=== PATIENT | male | born 1940 | race Caucasian/White ===

== ENCOUNTER 2024-01-29 21:59 | Observation (INO) | payer MEDICARE, OTHER ==
[2024-01-29 23:53] LABS: INR-International Normal Ratio 1.1; PTT 27.7 sec (22.0-33.0); Prothrombin Time 11.9 sec (9.5-12.1)
[2024-01-30 00:03] LABS: #Basophils 0.12 10x3/uL (0.0-0.2); #Eosinphils 0.37 10x3/uL (0.0-0.5); #Monocytes 1.27 10x3/uL (0.0-1.1); #Neutrophils 13.57 10x3/uL (1.5-8.4); %Basophils 0.7 % (0.0-2.0); %Eosinophils 2.1 % (0.0-6.0); %Lymphocytes 13.6 % (18.0-47.0); %Monocytes 7.1 % (0.0-10.0); %Neutrophils 75.4 % (40.0-75.0); Hematocrit 33.1 % (38.8-50.0); Hemoglobin 10.9 g/dL (13.5-17.5); Mean Corpuscular HGB CONC 32.9 g/dL (32.0-36.0); Mean Corpuscular Hemoglobin 23.2 pg (27.0-33.0); Mean Corpuscular Volume 70.4 fL (81.2-95.1); Mean Platelet Volume 11.4 fL (7.4-10.4); Platelet Count 307 10x3/uL (150-450); RBC Distribution Width 15.3 % (11.5-14.5)
[2024-01-30 00:03] LABS: ALT (SGPT) 10 U/L (8-55); AST (SGOT) 23 U/L (5-34); Albumin 3.1 g/dL (3.4-4.8); Alkaline Phosphatase 155 U/L (40-110); Anion Gap 14 mmol/L (10-20); BUN (Urea Nitrogen) 16 mg/dL (8.4-25.7); Bilirubin, Total 0.7 mg/dL (0.2-1.2); Calc. Creatinine Clearance 0 mL/min (70-130); Calcium 8.6 mg/dL (7.8-10.44); Carbon Dioxide 20 mmol/L (23-31); Chloride 104 mmol/L (98-107); Estimated GFR 58; Globulin 3.7 g/dL (2.4-3.5); Glucose 103 mg/dL (83-110); Potassium 3.3 mmol/L (3.5-5.1); Protein, Total 6.8 g/dL (5.8-8.1); Sodium 135 mmol/L (136-145)
[2024-01-30 00:15] LABS: Burr Cells SLIGHT = 2-5 cells (100X) (0-1/hpf); Elliptocytes SLIGHT = 2-5 cells (100X) (0-1/hpf); Microcytosis SLIGHT = 6-15 cells (100X) (0-5/hpf); Schistocytes SLIGHT = 2-5 cells (100X) (0-1/hpf)
[2024-01-30 00:16] LABS: Platelet Adequacy Comment Appears Adequate
[2024-01-30 01:03] LABS: Bilirubin Neg (Negative); Blood, Urine Negative (Negative); Glucose, Urine (Dipstick) Normal (Negative); Ketone, Urine Negative (Negative); Leukocyte Negative (Negative); Nitrite Negative (Negative); Protein, Urine (Dipstick) 100 mg/dl (Neg-Trace); Urobilinogen Normal mg/dL (Less than 2)
[2024-01-30] MEDS ORDERED: cefTRIAXone (ROCEPHIN) 1 GM VIAL ONE (01:05)
[2024-01-30 01:17] LABS: Clarity Clear (Clear)
[2024-01-30 01:20] LABS: Bacteria/HPF Rare-Few HPF (None Seen); CAUTI Indications for Culture Alt mental st,lethar; RBC/HPF 0-3 HPF (0-3); Squamous Epithelial 0-3 HPF (0-3); WBC/HPF 0-3 HPF (0-3)
[2024-01-30 01:21] LABS: Urine Culture Reflex No No
[2024-01-30] MEDS ORDERED: Acetaminophen 325 MG TAB PO PRN (02:55)
[2024-01-30 03:08] LABS: Magnesium 1.7 mg/dL (1.6-2.6)
[2024-01-30 04:08] VITALS: BMI 28.7
[2024-01-30] MEDS: TETANUS, DIPHTHERIA TOX,ADULT (TDVAX) 0.5 ML VIAL IM ONE (04:19)
[2024-01-30] MEDS: Magnesium Oxide 400 MG TAB PO SCH (04:19)
[2024-01-30] MEDS: Potassium Chloride 20 MEQ TAB PO SCH (04:19)
[2024-01-30] MEDS ORDERED: TICAGRELOR 90 MG TABLET PO SCH (09:00)
[2024-01-30] MEDS ORDERED: Lisinopril 5 MG TAB PO SCH (09:00)
[2024-01-30] MEDS ORDERED: Triple Antibiotic Ointment 30 GM TUBE TOP SCH (09:00)
[2024-01-30] MEDS ORDERED: Allopurinol 100 MG TAB PO SCH (09:00)
[2024-01-30] MEDS ORDERED: Metoprolol Tartrate 50 MG TAB PO SCH (09:00)
[2024-01-30] MEDS ORDERED: Enoxaparin 40 MG (0.4 mL) SYRINGE SC SCH (09:00)
[2024-01-30] MEDS ORDERED: Aspirin 81 mg Enteric Coated Tablet PO SCH (09:00)
[2024-01-30 09:13] VITALS: BP 106/76; TEMP 97.6
[2024-01-30 09:23] LABS: #Eosinphils 0.32 10x3/uL (0.0-0.5); #Monocytes 1.03 10x3/uL (0.0-1.1); #Neutrophils 6.14 10x3/uL (1.5-8.4); %Eosinophils 3.1 % (0.0-6.0); %Lymphocytes 25.1 % (18.0-47.0); %Neutrophils 59.8 % (40.0-75.0); Hematocrit 33.2 % (38.8-50.0); Hemoglobin 10.9 g/dL (13.5-17.5); Mean Corpuscular HGB CONC 32.8 g/dL (32.0-36.0); Mean Corpuscular Hemoglobin 23.6 pg (27.0-33.0); Mean Platelet Volume 10.6 fL (7.4-10.4); Platelet Count 257 10x3/uL (150-450); RBC Distribution Width 15.5 % (11.5-14.5); Red Blood Cell (RBC) Count 4.61 10x6/uL (4.32-5.72); White Blood Cell (WBC) Count 10.3 10x3/uL (3.5-10.5)
[2024-01-30 09:33] LABS: Anion Gap 12 mmol/L (10-20); BUN (Urea Nitrogen) 15 mg/dL (8.4-25.7); Calc. Creatinine Clearance 49 mL/min (70-130); Calcium 8.5 mg/dL (7.8-10.44); Carbon Dioxide 21 mmol/L (23-31); Chloride 109 mmol/L (98-107); Estimated GFR 65; Glucose 113 mg/dL (83-110); Potassium 3.5 mmol/L (3.5-5.1); Sodium 138 mmol/L (136-145)
[2024-01-30] MEDS ORDERED: Tamsulosin HCl 0.4 MG CAP PO SCH (21:00)
[2024-01-30] MEDS ORDERED: Atorvastatin Calcium 40 MG TAB PO SCH (21:00)
[2024-01-30] MEDS ORDERED: Finasteride 5 MG TAB PO SCH (21:00)
== END 2024-01-30 11:00 | disposition home or self-care (01) ==
LOC: CSHERS 21:59 → CSHTELE 01-30 02:55
PROVIDERS: ADMIT Family Medicine; ATTEND Internal Medicine
DX: D72.829 Elevated white blood cell count, unspecified (principal); S50.812A Abrasion of left forearm, initial encounter; S30.1XXA Contusion of abdominal wall, initial encounter; E87.6 Hypokalemia; I48.21 Permanent atrial fibrillation; I25.10 Atherosclerotic heart disease of native coronary artery without angina pectoris; I67.9 Cerebrovascular disease, unspecified; N40.0 Benign prostatic hyperplasia without lower urinary tract symptoms; E88.09 Other disorders of plasma-protein metabolism, not elsewhere classified; F17.220 Nicotine dependence, chewing tobacco, uncomplicated; Z79.82 Long term (current) use of aspirin; Z79.899 Other long term (current) drug therapy; Z95.5 Presence of coronary angioplasty implant and graft; W18.30XA Fall on same level, unspecified, initial encounter
CPT/HCPCS: 70450; 71046; 80048; 80053; 81001; 83735; 85025 ×2; 85610; 85730; 90714; 93005; 96374; 99285; G0378; G0390; J0696; 36415; 93010